=== PATIENT | female | born 1955 | race Caucasian/White ===

== ENCOUNTER 2016-12-26 21:05 | Inpatient (IN) | payer MEDICARE, MEDICAID ==
[~2016-12-26] VITALS: Ht 170.2 cm; Wt 87.1 kg
[2016-12-26 19:00] VITALS: BP 120/69
[2016-12-26 21:00] VITALS: BP 120/69
[2016-12-27] MEDS ORDERED: SENNOSIDES/DOCUSATE SOD 8.6/50MG TABLET PO PRN (01:00)
[2016-12-27] MEDS ORDERED: HYDROMORPHONE HCL/PF 2MG/ML CPJ IV PRN ×2 (01:00)
[2016-12-27] MEDS ORDERED: MAGNESIUM HYDROXIDE 400MG/5ML 30ML UDC PO PRN (01:00)
[2016-12-27] MEDS ORDERED: DEXTROSE 50% WATER 50ML SYRINGE IV PRN (01:00)
[2016-12-27] MEDS ORDERED: ONDANSETRON HCL 4MG/2ML VIAL IV PRN (01:00)
[2016-12-27] MEDS ORDERED: OXYCODONE HCL 5MG TABLET PO PRN ×3 (01:00)
[2016-12-27] MEDS ORDERED: BISACODYL 5MG TABLET PO PRN (01:00)
[2016-12-27] MEDS ORDERED: ACETAMINOPHEN 325MG TABLET PO PRN (01:00)
[2016-12-27] MEDS: BLOOD SUGAR DIAGNOSTIC STRIP TEST SCH ×3 (05:56→17:41)
[2016-12-27] MEDS: PANTOPRAZOLE 40MG DR TABLET PO SCH (05:58)
[2016-12-27] MEDS: INSULIN LISPRO 100 UNITS/ML SUBCUT SCH ×3 (06:00→17:41)
[2016-12-27 06:04] LABS: BASOPHILS % 0.2 % (0.0-2.0); EOSINOPHILS % 0.1 % (0.0-5.0); HEMATOCRIT. 35.8 % (36.0-48.0); HEMOGLOBIN. 11.7 g/dL (12.0-16.0); LYMPHOCYTES % 17.6 % (20.0-50.0); MEAN CORPUSCULAR HEMOGLOBIN 28.3 pg (28.0-32.0); MEAN CORPUSCULAR HGB CONC 32.7 g/dL (31.0-37.0); MEAN CORPUSCULAR VOLUME 86.5 fL (81.0-99.0); MEAN PLATELET VOLUME 7.8 fl (7.4-10.4); MONOCYTES % 6.9 % (2.0-8.0); NEUTROPHILS % 75.2 % (40.0-76.0); PLATELET 375 x1000/uL (130-400); RED BLOOD CELL COUNT 4.14 mill/uL (4.2-5.4); RED CELL DISTRIBUTION WIDTH 13.6 % (11.6-14.6); WHITE BLOOD COUNT 13.3 x1000/uL (4.5-11.0)
[2016-12-27 06:08] LABS: ANION GAP 12; CARBON DIOXIDE 31 mEq/L (21-32); CHLORIDE 101 mEq/L (98-107); INDEX HEMOLYSI 1 (1-3); INDEX ICTERIC 1 (1-4); INDEX LIPEMIC 1 (1-3); UREA NITROGEN BLOOD 15 mg/dL (7-21); eGFR > 60 mL/min (>60)
[2016-12-27 06:11] LABS: THYROID STIMULATING HORMONE 0.73 uIU/mL (0.36-3.74)
[2016-12-27 08:00] VITALS: BP 123/78
[2016-12-27] MEDS: DOCUSATE SODIUM 100MG CAPSULE PO SCH ×2 (08:16→17:35)
[2016-12-27] MEDS ORDERED: DEXAMETHASONE 2MG TABLET PO SCH (09:00)
[2016-12-27] MEDS: BACITRACIN ZINC 15GM TUBE TOP SCH (11:30)
[2016-12-27] MEDS: ENOXAPARIN 40MG/0.4ML SYR SUBCUT SCH (11:37)
[2016-12-27] MEDS: DEXAMETHASONE 4MG TABLET PO SCH ×2 (11:37→17:35)
[2016-12-27] MEDS ORDERED: DEXAMETHASONE 4MG TABLET PO SCH (12:00)
[2016-12-27 19:17] LABS: CLARITY URINE CLEAR (CLEAR); COLOR URINE YELLOW (YELLOW); GLUCOSE URINE NEGATIVE (NEGATIVE); KETONES URINE NEGATIVE (NEGATIVE); LEUKOCYTE ESTERASE URINE NEGATIVE (NEGATIVE); NITRITE URINE NEGATIVE (NEGATIVE); OCCULT BLOOD URINE NEGATIVE (NEGATIVE); PH URINE 8.5 (4.5-8.0); PROTEIN URINE NEGATIVE (NEGATIVE); SPECIFIC GRAVITY URINE 1.012 (1.005-1.030); UROBILINOGEN URINE 0.2 E.U./dL (0.2-1.0)
[2016-12-27 20:00] VITALS: BP 104/68
[2016-12-28] MEDS: DEXAMETHASONE 4MG TABLET PO SCH ×5 (00:03→23:46)
[2016-12-28] MEDS: BLOOD SUGAR DIAGNOSTIC STRIP TEST SCH ×5 (00:05→23:50)
[2016-12-28] MEDS: PANTOPRAZOLE 40MG DR TABLET PO SCH (05:45)
[2016-12-28] MEDS: INSULIN LISPRO 100 UNITS/ML SUBCUT SCH ×5 (05:49→23:50)
[2016-12-28 07:00] VITALS: BP 116/73
[2016-12-28] MEDS: DOCUSATE SODIUM 100MG CAPSULE PO SCH ×2 (08:50→17:11)
[2016-12-28] MEDS: ENOXAPARIN 40MG/0.4ML SYR SUBCUT SCH (08:51)
[2016-12-28] MEDS: BACITRACIN ZINC 15GM TUBE TOP SCH (08:51)
[2016-12-28 20:00] VITALS: BP 101/57
[2016-12-28] MEDS: POLYETHYLENE GLYCOL 3350 (17GM) 1 DOSE PACK PO SCH (21:48)
[2016-12-29] MEDS: DEXAMETHASONE 4MG TABLET PO SCH ×3 (05:56→17:27)
[2016-12-29] MEDS: INSULIN LISPRO 100 UNITS/ML SUBCUT SCH ×3 (05:58→17:28)
[2016-12-29] MEDS: BLOOD SUGAR DIAGNOSTIC STRIP TEST SCH ×3 (05:59→17:29)
[2016-12-29 06:17] LABS: ANION GAP 13; CALCIUM 8.9 mg/dL (8.5-10.1); CARBON DIOXIDE 27 mEq/L (21-32); CHLORIDE 102 mEq/L (98-107); INDEX HEMOLYSI 1 (1-3); INDEX ICTERIC 1 (1-4); INDEX LIPEMIC 1 (1-3); UREA NITROGEN BLOOD 23 mg/dL (7-21); eGFR > 60 mL/min (>60)
[2016-12-29 06:50] LABS: BASOPHILS % 0.2 % (0.0-2.0); HEMATOCRIT. 40.5 % (36.0-48.0); HEMOGLOBIN. 13.3 g/dL (12.0-16.0); LYMPHOCYTES % 10.3 % (20.0-50.0); MEAN CORPUSCULAR HEMOGLOBIN 28.5 pg (28.0-32.0); MEAN CORPUSCULAR HGB CONC 32.7 g/dL (31.0-37.0); MEAN PLATELET VOLUME 7.8 fl (7.4-10.4); MONOCYTES % 4.4 % (2.0-8.0); NEUTROPHILS % 85.1 % (40.0-76.0); PLATELET 444 x1000/uL (130-400); RED BLOOD CELL COUNT 4.65 mill/uL (4.2-5.4); RED CELL DISTRIBUTION WIDTH 13.4 % (11.6-14.6); WHITE BLOOD COUNT 16.3 x1000/uL (4.5-11.0)
[2016-12-29 08:00] VITALS: BP 120/74
[2016-12-29] MEDS: DOCUSATE SODIUM 100MG CAPSULE PO SCH ×2 (09:09→17:27)
[2016-12-29] MEDS: ENOXAPARIN 40MG/0.4ML SYR SUBCUT SCH (09:09)
[2016-12-29] MEDS: FAMOTIDINE 20MG TABLET PO SCH ×2 (09:09→22:20)
[2016-12-29] MEDS: BACITRACIN ZINC 15GM TUBE TOP SCH (09:10)
[2016-12-29 20:00] VITALS: BP 118/72
[2016-12-29] MEDS: POLYETHYLENE GLYCOL 3350 (17GM) 1 DOSE PACK PO SCH (22:19)
[2016-12-30] MEDS: DEXAMETHASONE 2MG TABLET PO SCH ×4 (00:18→16:56)
[2016-12-30] MEDS: BLOOD SUGAR DIAGNOSTIC STRIP TEST SCH ×4 (00:19→16:55)
[2016-12-30] MEDS: INSULIN LISPRO 100 UNITS/ML SUBCUT SCH ×4 (06:00→16:55)
[2016-12-30 08:00] VITALS: BP 98/60
[2016-12-30] MEDS: FAMOTIDINE 20MG TABLET PO SCH ×2 (08:45→20:51)
[2016-12-30] MEDS: DOCUSATE SODIUM 100MG CAPSULE PO SCH ×2 (08:45→16:56)
[2016-12-30] MEDS: ENOXAPARIN 40MG/0.4ML SYR SUBCUT SCH (08:46)
[2016-12-30] MEDS ORDERED: LACTULOSE 20G/30ML UDC PO PRN (09:00)
[2016-12-30] MEDS: BACITRACIN ZINC 15GM TUBE TOP SCH (10:45)
[2016-12-30 20:00] VITALS: BP_SYST 102; BP_SYST 93; BP_DIAS 46; BP_DIAS 70
[2016-12-30] MEDS: POLYETHYLENE GLYCOL 3350 (17GM) 1 DOSE PACK PO SCH (20:51)
[2016-12-31] MEDS: DEXAMETHASONE 2MG TABLET PO SCH ×5 (00:01→23:29)
[2016-12-31] MEDS: BLOOD SUGAR DIAGNOSTIC STRIP TEST SCH ×5 (00:03→23:30)
[2016-12-31] MEDS: INSULIN LISPRO 100 UNITS/ML SUBCUT SCH ×5 (00:08→23:36)
[2016-12-31 07:07] LABS: HEMATOCRIT. 41.3 % (36.0-48.0); HEMOGLOBIN. 13.6 g/dL (12.0-16.0); MEAN CORPUSCULAR HEMOGLOBIN 28.4 pg (28.0-32.0); MEAN CORPUSCULAR VOLUME 85.9 fL (81.0-99.0); MEAN PLATELET VOLUME 7.4 fl (7.4-10.4); PLATELET 503 x1000/uL (130-400); RED BLOOD CELL COUNT 4.81 mill/uL (4.2-5.4); RED CELL DISTRIBUTION WIDTH 13.7 % (11.6-14.6); WHITE BLOOD COUNT 18.4 x1000/uL (4.5-11.0)
[2016-12-31 07:25] LABS: ALBUMIN 2.8 g/dL (3.4-5.0); ANION GAP 14; CALCIUM 8.5 mg/dL (8.5-10.1); CARBON DIOXIDE 28 mEq/L (21-32); CHLORIDE 101 mEq/L (98-107); INDEX HEMOLYSI 1 (1-3); INDEX ICTERIC 1 (1-4); INDEX LIPEMIC 1 (1-3); UREA NITROGEN BLOOD 22 mg/dL (7-21)
[2016-12-31 07:28] LABS: ALANINE AMINOTRANSFERASE 48 IU/L (13-61); DIFFERENTIAL COMMENT 1; eGFR > 60 mL/min (>60)
[2016-12-31 08:00] VITALS: BP 94/57
[2016-12-31] MEDS: FAMOTIDINE 20MG TABLET PO SCH ×2 (08:29→20:52)
[2016-12-31] MEDS: DOCUSATE SODIUM 100MG CAPSULE PO SCH ×2 (08:29→17:08)
[2016-12-31] MEDS: ENOXAPARIN 40MG/0.4ML SYR SUBCUT SCH (08:30)
[2016-12-31] MEDS: BACITRACIN ZINC 15GM TUBE TOP SCH (08:30)
[2016-12-31] MEDS ORDERED: SODIUM CHLORIDE 0.9% 1,000 ML IV ONE (10:30)
[2016-12-31 13:45] LABS: NUCLEATED RED BLOOD CELLS 1 /100 WBC; PLATELET ESTIMATE INCREASED
[2016-12-31 15:11] LABS: CLARITY URINE CLEAR (CLEAR); COLOR URINE YELLOW (YELLOW); GLUCOSE URINE NEGATIVE (NEGATIVE); KETONES URINE NEGATIVE (NEGATIVE); LEUKOCYTE ESTERASE URINE TRACE (NEGATIVE); NITRITE URINE NEGATIVE (NEGATIVE); OCCULT BLOOD URINE NEGATIVE (NEGATIVE); PH URINE 6.5 (4.5-8.0); PROTEIN URINE NEGATIVE (NEGATIVE); UROBILINOGEN URINE 0.2 E.U./dL (0.2-1.0)
[2016-12-31 15:29] LABS: SQUAMOUS EPITHELIAL CELL URINE FEW /lpf (RARE/1+)
[2016-12-31 15:30] LABS: BACTERIA URINE TRACE; RBC URINE 0-2 /hpf (0-2); WBC URINE 0-2 /hpf (0-2)
[2016-12-31] MEDS: LEVOFLOXACIN 500MG TABLET PO SCH (17:27)
[2016-12-31 20:00] VITALS: BP 99/62
[2016-12-31] MEDS: POLYETHYLENE GLYCOL 3350 (17GM) 1 DOSE PACK PO SCH ×2 (20:51→21:34)
[2017-01-01] MEDS: DEXAMETHASONE 2MG TABLET PO SCH ×3 (05:56→16:56)
[2017-01-01] MEDS: INSULIN LISPRO 100 UNITS/ML SUBCUT SCH ×3 (06:05→17:37)
[2017-01-01] MEDS: BLOOD SUGAR DIAGNOSTIC STRIP TEST SCH ×3 (06:05→16:59)
[2017-01-01 08:09] VITALS: BP 103/74
[2017-01-01] MEDS: FAMOTIDINE 20MG TABLET PO SCH ×2 (08:59→22:20)
[2017-01-01] MEDS: DOCUSATE SODIUM 100MG CAPSULE PO SCH ×2 (08:59→16:56)
[2017-01-01] MEDS: BACITRACIN ZINC 15GM TUBE TOP SCH (09:00)
[2017-01-01] MEDS: ENOXAPARIN 40MG/0.4ML SYR SUBCUT SCH (09:00)
[2017-01-01] MEDS: LEVOFLOXACIN 500MG TABLET PO SCH (11:47)
[2017-01-01 20:00] VITALS: BP 100/75
[2017-01-01] MEDS: POLYETHYLENE GLYCOL 3350 (17GM) 1 DOSE PACK PO SCH (22:20)
[2017-01-02] MEDS: DEXAMETHASONE 2MG TABLET PO SCH ×5 (00:03→18:09)
[2017-01-02] MEDS: BLOOD SUGAR DIAGNOSTIC STRIP TEST SCH ×4 (00:05→18:10)
[2017-01-02] MEDS: INSULIN LISPRO 100 UNITS/ML SUBCUT SCH ×4 (06:00→18:18)
[2017-01-02 08:00] VITALS: BP 100/88
[2017-01-02] MEDS: ENOXAPARIN 40MG/0.4ML SYR SUBCUT SCH (09:39)
[2017-01-02] MEDS: FAMOTIDINE 20MG TABLET PO SCH ×2 (09:39→20:57)
[2017-01-02] MEDS: DOCUSATE SODIUM 100MG CAPSULE PO SCH ×2 (09:39→18:09)
[2017-01-02] MEDS: BACITRACIN ZINC 15GM TUBE TOP SCH (09:40)
[2017-01-02] MEDS: LEVOFLOXACIN 500MG TABLET PO SCH (12:26)
[2017-01-02 20:00] VITALS: BP 104/57
[2017-01-02] MEDS: POLYETHYLENE GLYCOL 3350 (17GM) 1 DOSE PACK PO SCH (20:57)
[2017-01-03] MEDS: DEXAMETHASONE 2MG TABLET PO SCH ×4 (01:15→17:32)
[2017-01-03] MEDS: INSULIN LISPRO 100 UNITS/ML SUBCUT SCH ×4 (06:00→17:49)
[2017-01-03] MEDS: BLOOD SUGAR DIAGNOSTIC STRIP TEST SCH ×4 (06:17→17:50)
[2017-01-03 06:49] LABS: HEMATOCRIT. 38.3 % (36.0-48.0); HEMOGLOBIN. 12.6 g/dL (12.0-16.0); MEAN CORPUSCULAR HEMOGLOBIN 28.5 pg (28.0-32.0); MEAN CORPUSCULAR VOLUME 86.4 fL (81.0-99.0); MEAN PLATELET VOLUME 7.2 fl (7.4-10.4); PLATELET 440 x1000/uL (130-400); RED BLOOD CELL COUNT 4.43 mill/uL (4.2-5.4); RED CELL DISTRIBUTION WIDTH 13.8 % (11.6-14.6); WHITE BLOOD COUNT 18.1 x1000/uL (4.5-11.0)
[2017-01-03 07:18] LABS: ANION GAP 14; CALCIUM 8.3 mg/dL (8.5-10.1); CARBON DIOXIDE 25 mEq/L (21-32); CHLORIDE 105 mEq/L (98-107); INDEX HEMOLYSI 1 (1-3); INDEX ICTERIC 1 (1-4); INDEX LIPEMIC 1 (1-3); UREA NITROGEN BLOOD 23 mg/dL (7-21); eGFR > 60 mL/min (>60)
[2017-01-03 07:34] LABS: DIFFERENTIAL COMMENT 1
[2017-01-03 08:00] VITALS: BP 93/56
[2017-01-03] MEDS: FAMOTIDINE 20MG TABLET PO SCH ×2 (08:18→22:55)
[2017-01-03] MEDS: DOCUSATE SODIUM 100MG CAPSULE PO SCH ×2 (08:18→17:32)
[2017-01-03] MEDS: ENOXAPARIN 40MG/0.4ML SYR SUBCUT SCH (08:19)
[2017-01-03] MEDS: BACITRACIN ZINC 15GM TUBE TOP SCH (08:28)
[2017-01-03 10:38] LABS: PLATELET ESTIMATE INCREASED
[2017-01-03] MEDS: LEVOFLOXACIN 500MG TABLET PO SCH (11:48)
[2017-01-03 20:00] VITALS: BP 92/63
[2017-01-03] MEDS: POLYETHYLENE GLYCOL 3350 (17GM) 1 DOSE PACK PO SCH (22:55)
[2017-01-04] VITALS: BP 108/68
[2017-01-04] MEDS: DEXAMETHASONE 2MG TABLET PO SCH ×3 (01:00→11:20)
[2017-01-04] MEDS: INSULIN LISPRO 100 UNITS/ML SUBCUT SCH ×2 (06:00)
[2017-01-04] MEDS: BLOOD SUGAR DIAGNOSTIC STRIP TEST SCH ×2 (06:01)
[2017-01-04 07:02] LABS: HEMATOCRIT. 38.2 % (36.0-48.0); HEMOGLOBIN. 12.4 g/dL (12.0-16.0); MEAN CORPUSCULAR HEMOGLOBIN 28.2 pg (28.0-32.0); MEAN CORPUSCULAR HGB CONC 32.5 g/dL (31.0-37.0); MEAN CORPUSCULAR VOLUME 86.7 fL (81.0-99.0); MEAN PLATELET VOLUME 7.3 fl (7.4-10.4); PLATELET 399 x1000/uL (130-400); WHITE BLOOD COUNT 18.5 x1000/uL (4.5-11.0)
[2017-01-04 07:08] LABS: ANION GAP 13; CALCIUM 8.4 mg/dL (8.5-10.1); CARBON DIOXIDE 24 mEq/L (21-32); CHLORIDE 106 mEq/L (98-107); INDEX HEMOLYSI 1 (1-3); INDEX ICTERIC 1 (1-4); INDEX LIPEMIC 1 (1-3); UREA NITROGEN BLOOD 20 mg/dL (7-21); eGFR > 60 mL/min (>60)
[2017-01-04 07:28] LABS: DIFFERENTIAL COMMENT 1
[2017-01-04 08:00] VITALS: BP 89/45
[2017-01-04] MEDS: FAMOTIDINE 20MG TABLET PO SCH (08:58)
[2017-01-04] MEDS: DOCUSATE SODIUM 100MG CAPSULE PO SCH (08:58)
[2017-01-04] MEDS: ENOXAPARIN 40MG/0.4ML SYR SUBCUT SCH (08:58)
[2017-01-04] MEDS: BACITRACIN ZINC 15GM TUBE TOP SCH (08:59)
[2017-01-04] MEDS: LEVOFLOXACIN 500MG TABLET PO SCH (11:20)
[2017-01-04 11:30] VITALS: BP 89/45
[2017-01-04 12:53] LABS: PLATELET ESTIMATE NORMAL
[2017-01-05] MEDS ORDERED: DEXAMETHASONE 1MG TABLET PO SCH
[2017-01-08] MEDS ORDERED: DEXAMETHASONE 1MG TABLET PO SCH (09:00)
== END 2017-01-04 12:00 | disposition home or self-care (01) | DRG 55 ==
PROVIDERS: ADMIT Psychiatry & Neurology Neurology; ATTEND Internal Medicine Geriatric Medicine
DX: D32.0 Benign neoplasm of cerebral meninges (principal); R29.810 Facial weakness; E78.5 Hyperlipidemia, unspecified; R26.9 Unspecified abnormalities of gait and mobility; H91.91 Unspecified hearing loss, right ear; D64.9 Anemia, unspecified; R73.9 Hyperglycemia, unspecified; T38.0X5A Adverse effect of glucocorticoids and synthetic analogues, initial encounter; G62.9 Polyneuropathy, unspecified; E78.00 Pure hypercholesterolemia, unspecified; I95.9 Hypotension, unspecified; E86.0 Dehydration; R53.81 Other malaise; Z90.710 Acquired absence of both cervix and uterus; Z86.011 Personal history of benign neoplasm of the brain
CPT/HCPCS: 36415; 80048; 80053; 81001; 81003; 82962; 84443; 85025; 87040; 87086; 92523; 93970; 94640; 97110; 97112; 97116; 97150; 97163; 97167; 97530; 97535; J1650; J1815; J7040; J8540